=== PATIENT | male | born 1965 | race Caucasian/White ===

== ENCOUNTER 2017-05-13 05:36 | Day surgery (SDC) | payer OTHER ==
[~2017-05-13] VITALS: Ht 175.3 cm; Wt 72.6 kg
[~2017-05-13 05:36] MED LIST: IBUPROFEN600 MG PO; NAPROXEN500 MG PO; NORCO 5-325 TA1 EACH PO
[2017-05-13] MEDS ORDERED: MOBIC15 MG PO (05:56)
[2017-05-13] MEDS ORDERED: ULTRAM50 MG PO (05:57)
--- NOTE | 2017-05-13 07:31 | NUR ---
05/13/17 0731 Queenie Hinojosa 0736-PATIENT ARRIVED TO PACU ON RA AWAKE DENIES PAIN OR NAUSEA. SB. BANDAID TO LEFT ANTERIOR HIP CDI. GUARDS AT BEDSIDE RA O2 SAT 98%
== END 2017-05-13 07:51 | disposition home or self-care (01) ==
LOC: OPS 05:36 → DS 05:36 → OPS 06:45 → DS 06:45 → OPS 07:51
PROVIDERS: Orthopaedic Surgery
PROC: 3E0U3BZ Introduction of Anesthetic Agent into Joints, Percutaneous Approach (ICD-10-PCS; principal; 2017-05-13 06:45)
DX: M16.12 Unilateral primary osteoarthritis, left hip (principal)
CPT/HCPCS: 73501; 99156; J0690; J1885; J2704; J3010; J3301; J7120

== ENCOUNTER 2018-02-11 11:10 | Inpatient (IN) | payer OTHER ==
[~2018-02-11] VITALS: Ht 175.3 cm; Wt 72.6 kg
[~2018-02-11 11:10] MED LIST changes: +MOBIC15 MG PO; +ULTRAM50 MG PO
[2018-02-22] MEDS ORDERED: INDOMETHACIN25 MG PO (06:02)
--- NOTE | 2018-02-22 07:03 | NUR ---
CHG ORAL RINSE AND NASAL SWAB COMPLETE.
--- NOTE | 2018-02-22 09:04 | NUR ---
02/22/18 0904 Desi Lockett 0825 PATIENT ARRIVES TO PACU SLEEPING, OPENS EYES WITH VERBAL STIMULI. RESP EVEN AND UNLABORED. MASK AT 10 LITERS, DECREASED TO 6 LITERS. SATS 100%.
--- NOTE | 2018-02-22 10:13 | NUR ---
LE 0930: SPINAL LEVEL ASSESSED AND IS NOTED TO BE @ T12. PATIENT IS ABLE TO MOVE HIS LEFT FOOT FROM SIDE TO SIDE MINIMALLY. COFFEE AND ICED WATER GIVEN. PATIENT DRINKING WATER AND TOLERATING THAT WELL. MORE ICED WATER GIVEN.
--- NOTE | 2018-02-22 10:24 | NUR ---
SPINAL REMAINS UNCHANGED. PATIENT IS ABLE TO MOVE FEET BILATERALLY BACK AND FORTH MINIMALLY.
--- NOTE | 2018-02-22 11:45 | NUR ---
PT ARRIVED FROM DAY SURGERY. REPORT TAKEN FROM SEYMOUR TORRES. PT ORIENTED TO ROOM. PT DEMONSTRATES USE OF IS. PT TOLERTING ICE CREAM AND CRACKERS. ORDER PLACED FOR SOUP AND SANDWICH LUNCH. PT REPORTS 2/10 TOLERABLE PAIN AND DENIES NAUSEA. ICE IN PLACED OVER LOBITO LEFT HIP BANDAGE. SCD'S IN PLACE. ASSESSMENT DONE. MEDICATION GIVEN ORDERED (SEE MAR). TORDOL ORDER PLACED FOR BOTH 1200 AND 1400, PHARMACY CALLED, 1200 ORDER DC'D TORDOL TO BE GIVEN AT 1400. VITALS TAKEN. PT WATCHING TV. NO REQUESTS OR COMPLAINTS AT THIS TIME. BED RAILS UP. KNEES LOCKED BED AT 30 DEGREES. CALL LIGTH WITHIN REACH. OFFICERS AT BEDSIDE.
--- NOTE | 2018-02-22 11:58 | NUR ---
1145: PT TRANSFERRED TO ROOM 121 AND IS TRANSFERRED TO BED FROM STRETCHER USING SLIDER BOARD. PATIENT TOLERATES THE TRANSFER WELL. VERBAL REPORT IS GIVEN TO SEYMOUR VERGARA, HER QUESTIONS ARE ANSWERED AND SHE IS ATTENTIVE TO THE PATIENT AT THE BEDSIDE.
--- NOTE | 2018-02-22 13:00 | NUR ---
PATIENT SITTING UP IN BED. GUARDS X2 IN ROOM. CALL LIGHT WITHIN REACH. NO OTHER NEEDS AT THIS TIME.
--- NOTE | 2018-02-22 13:27 | NUR ---
MED REC COMPLETE WITH [facility] REC[facility].
--- NOTE | 2018-02-22 13:30 | NUR ---
THIS RN TO BEDSIDE TO ASSIST PT IN ATTEMPTING TO URINATE. URINAL PROVIDED. PT UNABLE TO VOID. BLADDER SCANScar DIAZ 999ML. CALLED. ORDER FOR REILLY CATHETER INCERTION PLACED. REILLY CATHETER PLACED BY STUDENT RN WITH SUPERVISION FROM THIS RN PER POLICY. 1175 ML REMOVED FROM REILLY. PT STATES "THAT DIDN'T HURT AT ALL." PT WATCHING TV. OFFICERS AT BEDSIDE. CALL LIGHT WITHIN REACH.
--- NOTE | 2018-02-22 15:08 | NUR ---
MEDICATION DUE. THIS RN TO BEDSIDE. PT WATCHING TV. NO REQUESTS OR COMPLAINTS. MEDICATION GIVEN ORDERED. OFFICERS AT BEDSIDE. CALL LIGHT WITHIN REACH.
--- NOTE | 2018-02-22 15:17 | NUR ---
PATIENT SITTING UP IN BED. GUARDS X2 IN ROOM. PATIENT STATES PAIN LEVEL IS A 5 OUT OF 10. RN IN ROOM. FRESH ICE. FRESH ICE PACK. CALL LIGHT WITHIN REACH. NO OTHER NEEDS AT THIS TIME.
--- NOTE | 2018-02-22 16:57 | NUR ---
PT CALL LIGHT ON. PT REQUESTS PAIN MEDICATION FOR 05/10 PAIN. SEE MAR FOR MEDICATION GIVEN. ASSESSMENT DONE. PT WATCHING TV. PT DENIES NAUSEA. ABDUCTOR PILLOW IN PLACED. DRESSING CDI. REILLY DRAINING CLEAR YELLOW URINE TO GRAVITY. SCD'S RUNNING. PT STATES HE HAS NO ADDITIONAL REQUESTS OR COMPALINTS. BED RAILS UP. CALL LIGHT WITHIN REACH.
--- NOTE | 2018-02-22 17:03 | NUR ---
PATIENT SITTING UP IN BED WATCHING TV. GUARDS X2 IN ROOM. FRESH ICE WATER. CALL LIGHT WITHIN REACH. NO OTHER NEEDS AT THIS TIME.
--- NOTE | 2018-02-22 18:15 | NUR ---
MEDICATION DUE. THIS RN TO BEDSIDE. PT REPORTS IMPROVED PAIN NOW AT 02/08. MEDICATION GIVEN ORDERED. PT WATCHING TV AND WORKING WITH IS. WATER REFILLWED. PT STATES HAS NO ADDITIONAL REQUESTS OR COMPLAINTS AT THIS TIME. BED RAILS UP. CALL LIGHT WITHIN REACH. ABDUCTOR PILLOW AND ICE IN PLACE. SCDS RUNNING.
--- NOTE | 2018-02-22 18:34 | NUR ---
PT ARRIVED FROM DAY YR TODAY FOLLOWING LEFT TOTAL HIP REPLACEMENT. PRN PAIN MEDICATION. SPINAL RESOLVED. DENIES NASUEA. ADVANCED TO REGULAR DIET. ICE ON SITE. ABDUCTOR PILLOW IN PLACE. USING CALL LIGHT APPROPIRATLY. OFFICERS AT BEDSIDE.
--- NOTE | 2018-02-22 19:25 | NUR ---
RECEIVED REPORT FROM RN. PATIENT IS RESTING IN BED, BREATHING IS EVEN AND UNLABORED. DENIES NEEDS AT THIS TIME. CALL LIGHT WITHIN REACH, JOYA X4 IN PLACE, GUARDS AT BEDSIDE.
--- NOTE | 2018-02-22 20:43 | NUR ---
PATIENT RESTING IN BED, BREATHING IS EVEN AND UNLABORED. REPORTS 7/10 PAIN IN LEFT HIP, PRN PAIN MEDICATION GIVEN PER EMAR. DENIES FURTHER NEEDS. ASSESSMENT DONE. SHACKLES X4 IN PLACE, GUARDS AT BEDSIDE.
--- NOTE | 2018-02-22 22:41 | NUR ---
PATIENT RESTING COMFORTABLY IN BED, BREATHING IS EVEN AND UNLABORED. REPORTS 5/10 PAIN IN LEFT HIP, DENIES NEED FOR PAIN MEDICATION AT THIS TIME. DENIES NEEDS. CALL LIGHT WITHIN REACH, GUARDS AT BEDSIDE, SHACKLES X4 IN PLACE.
--- NOTE | 2018-02-23 00:45 | NUR ---
PATIENT RESTING COMFORTABLY IN BED, BREATHING IS EVEN AND UNLABORED. FLACC SCORE OF 0. SHACKLES IN PLACE X4, GUARDS AT BEDSIDE, CALL LIGHT WITHIN REACH.
--- NOTE | 2018-02-23 02:35 | NUR ---
PATIENT RESTING IN BED, REPORTS 7/10 PAIN IN LEFT HIP, PAIN MEDICATION GIVEN PER EMAR. PATIENT DENIES FURTHER NEEDS. CALL LIGHT WITHIN REACH, SHACKLES X4 IN PLACE, GUARDS AT BEDSIDE.
--- NOTE | 2018-02-23 03:30 | NUR ---
PT AWAKE, CALLED D/T IV PUMP SOUNDING. FLUSHED IV, SL AT THIS TIME. FRESH ICE WATER, ASSISTED WITH LINENS. ICE PACK TO LEFT HIP CONTINUES, 2 GUARDS PRESENT IN ROOM. PT HAD NO OTHER NEEDS.
--- NOTE | 2018-02-23 03:35 | NUR ---
VITAL SIGNS AND INTAKE AND OUTPUT DONE AND CHARTED. ICE WATER REFILLED AND ICE PACK.
--- NOTE | 2018-02-23 03:38 | NUR ---
PATIENT RESTING COMFORTABLY, REPORTS 5/10 PAIN AND STATES "IT IS GOING DOWN. I FEEL A LOT BETTER." DENIES NEEDS. CALL LIGHT WITHIN REACH, SHACKLES X4 IN PLACE, GUARDS AT BEDSIDE.
--- NOTE | 2018-02-23 06:33 | NUR ---
PATIENT RESTING COMFORTABLY IN BED, BREATHING IS EVEN AND UNLABORED. REPORTS 6/10 PAIN IN LEFT HIP, PRN DILAUDID GIVEN PER EMAR. DENIES FURTHER NEEDS. SHACKLES IN PLACE X4, GUARDS AT BEDSIDE, CALL LIGHT WITHIN REACH.
--- NOTE | 2018-02-23 08:08 | NUR ---
PT AWAKE IN BED EATING REG BREAKFAST, KADI WELL. PT DENIES NAUSEA. RATING LEFT HIP PAIN 5/10, MEDICATED WITH SCHEDULED TORADOL. IV IN RIGHT HAND FLUSHES WELL, DRESSING CDI. LEFT HIP DRESSING CDI, GOOD CMS, CAP REFILL LESS THAN 3, SENSATION AND MOVEMENT INTACT. ABDUCTOR PILLOW, ANTONY HOSE, SCD'S, AND HEEL PROTECTORS IN PLACE. PT ALERT AND ORIENTED TO ALL. 4 POINT SHACKLE RESTRAINTS IN PLACE, SKIN INTACT. 2 CORRECTIONAL OFFICERS AT BEDSIDE. CALL LIGHT WITHIN REACH.
--- NOTE | 2018-02-23 08:26 | NUR ---
PATIENT SITTING UP IN BED. GUARDS X2 IN ROOM. FRESH ICE WATER. FRESH ICE PACKS. PATIENT STATES PAIN LEVEL IS A 5 OUT OF 10. CALL LIGHT WITHIN REACH. NO OTHER NEEDS AT THIS TIME.
--- NOTE | 2018-02-23 09:46 | OR ---
[facility] [address], [place] [address] Signed DATE OF OPERATION: 02/22/2018 SURGEON: Rohan Box MD PREOPERATIVE DIAGNOSIS: End-stage osteoarthritis, left hip. POSTOPERATIVE DIAGNOSIS: End-stage osteoarthritis, left hip. PROCEDURE: Left total hip arthroplasty. ANESTHESIA: Spinal with sedation. SPECIMENS AND COMPLICATIONS: There were no specimens or complications. BLOOD LOSS: About 250. IMPLANTS: Kirklin sector cup 54 mm with two adjuvant screws, 36 neutral liner, a size 6 Fountain stem standard offset, and a -1.5 36 mm head. WHAT WAS DONE: The patient was taken to the operating room and placed on the operating table in the supine position. After anesthesia was induced, the patient was sedated. He was placed in the right lateral decubitus position and prepped and draped in a routine sterile fashion. A slight curvilinear incision was made centered over the tip of the greater trochanter, and skin and subcutaneous tissue were divided. Hemostasis was achieved with electrocautery and the deep fascia was incised in line with the skin incision. A self-retaining retractor was placed. The anterior one-third of the gluteus was elevated off of the greater trochanter and reflected medially. The anterior and superior capsulectomy was performed and the hip was dislocated. Femoral neck osteotomy was accomplished using the guide and an oscillating saw. The head and neck fragment were then removed. The acetabulum was then exposed by excising the rest of the labrum and the contents of the pulvinar were excised. Hemostasis was achieved with electrocautery again. We then did sequential reaming on the acetabulum up to a 53 mm. Because of the Electronically Signed By: ROHAN BOX MD 02/23/18 0946 PATIENT NAME: YENNIFER MARTINEZ OPERATIVE REPORT DATE OF : 61 REPORT #: [id number] PHYSICIAN: ROHAN BOX MD PCP: NO PRIMARY CARE PHYSICIAN REPORT IS CONFIDENTIAL AND NOT TO BE RELEASED WITHOUT AUTHORIZATION [facility] [address], [place] [address] Signed incredibly dense bone, we did touch the edge with the 54 mm reamer. We then put in a 53 mm trial. We were happy with the alignment and position and therefore impacted the 54 mm cup. The fixation was augmented with two screws. The neutral liner was then impacted. The femur was then rotated up into the wound and prepared with a standard box chisel, reamers, and broaches. We were quite happy with the fit and fill of a size 6 stem. We then relocated the hip on a -1.5 36 head and we were happy with the alignment, position, stability, and leg length. We then re-dislocated the hip, removed the trials, impacted the real stem, and relocated it with the -1.5 cobalt chrome head. Again, we had good alignment, good position. There was no neck impingement and he seemed to have a stable construct. The wound was copiously irrigated and closed in standard fashion. Sterile dressings were applied and the patient was awakened and taken to the recovery room where he arrived in stable condition. Counts were correct and antibiotic protocols were followed. Rohan Box MD WFB/MODL /[id number] Copies: ~ Electronically Signed By: ROHAN BOX MD 02/23/18 0946 PATIENT NAME: YENNIFER MARTINEZ OPERATIVE REPORT DATE OF : 61 REPORT #: [id number] PHYSICIAN: ROHAN BOX MD PCP: NO PRIMARY CARE PHYSICIAN REPORT IS CONFIDENTIAL AND NOT TO BE RELEASED WITHOUT AUTHORIZATION
--- NOTE | 2018-02-23 09:57 | NUR ---
PATIENT SITTING UP IN BED WATCHING TV. GUARDS X2 IN ROOM. PATIENT STATES PAIN LEVEL IS A 7 OUT OF 10. RN NOTIFIED. PATIENT VOIDED 600ML WELL. RN NOTIFIED. FRESH WATER. CALL LIGHT WITHIN REACH. NO OTHER NEEDS AT THIS TIME.
--- NOTE | 2018-02-23 10:30 | NUR ---
PT SITTING UP IN BED WATCHING TV. MEDICATED WITH PO DILAUDID BY CHARGE NURSE. ATE ALL OF BREAKFAST, KADI WELL. DENIES NAUSEA AT THIS TIME. DRESSING REMAINS CDI. TEDS, SCD'S ABDUCTOR PILLOW, HEEL PROTECTORS IN PLACE. 2 CORRECTIONAL OFFICERS AT BEDSIDE. CALL LIGHT WITHIN REACH.
--- NOTE | 2018-02-23 12:20 | NUR ---
PT SITTING IN BED WATCHING TV. MEDICATED WITH SCHEDULED TYLENOL. ATE ALL OF LUNCH, KADI WELL. DENIES NEEDS OR CONCERNS AT THIS TIME. [address], 2 CORRECTIONAL OFFICERS AT BEDSIDE.
--- NOTE | 2018-02-23 12:32 | NUR ---
PATIENT SITTING UP IN BED. GUARDS X2 IN ROOM. FRESH ICE PACKS. RN GOT PATIENT FRESH COFFEE. CALL LIGHT WITHIN REACH. NO OTHER NEEDS AT THIS TIME.
--- NOTE | 2018-02-23 12:52 | NUR ---
PT BACK TO BED FROM P.T., KADI WELL. MEDICATED WITH 2 TABS OXY FOR 7/10 LEFT HIP PAIN. CALL LIGHT WITHIN REACH. CORRECTIONAL OFFICERS AT BEDSIDE.
--- NOTE | 2018-02-23 13:19 | NUR ---
PATIENT SITTING UP IN BED WATCHING TV. GUARDS X2 IN ROOM. FRESH ICE WATER. CALL LIGHT WITHIN REACH. NO OTHER NEEDS AT THIS TIME.
[2018-02-23] MEDS ORDERED: NORCO 10-325 T1 EACH PO (13:23)
[2018-02-23] MEDS ORDERED: ULTRAM50 MG PO (13:24)
[2018-02-23] MEDS ORDERED: XARELTO10 MG PO (13:25)
--- NOTE | 2018-02-23 14:30 | NUR ---
PT DRESSED IN [facility] ATTIRE WITH ASSISTANCE FROM CORRECTIONAL OFFICERS. IV DC'D, CATH INTACT. DC INSTRUCTIONS GIVEN.
--- NOTE | 2018-02-24 18:35 | NUR ---
FAXED CHART NOTES TO [facility] INCLUDING FACESHEET, H AND P, OP NOTE, PROG NOTES, PT EVAL AND NOTES.
== END 2018-02-23 14:45 | disposition home or self-care (01) | DRG 470 ==
LOC: MS 02-22 05:42 → DSVR 02-22 05:42 → MS 02-22 06:45
PROVIDERS: ADMIT Orthopaedic Surgery
PROC: 0SRB01Z Replacement of Left Hip Joint with Metal Synthetic Substitute, Open Approach (ICD-10-PCS; principal; 2018-02-22 06:45)
DX: M16.12 Unilateral primary osteoarthritis, left hip (principal); F11.11 Opioid abuse, in remission; B19.20 Unspecified viral hepatitis C without hepatic coma; Z87.891 Personal history of nicotine dependence
CPT/HCPCS: 01214; 36415; 72170; 73501; 80048; 85025; 94762; 97116; 97162; C1776; G8978; G8979; G8980; J0690; J1100; J1170; J1885; J2250; J2274; J2405; J2704; J2765; J3010; J7120

== ENCOUNTER 2021-07-16 15:18 | Emergency (ER) | payer SELFPAY ==
[~2021-07-16] VITALS: Ht 175.3 cm; Wt 68.0 kg
[~2021-07-16 15:18] MED LIST changes: +INDOMETHACIN25 MG PO; +NORCO 10-325 T1 EACH PO; +XARELTO10 MG PO
[2021-07-16] MEDS ORDERED: PREDNISONE20 MG PO (17:19)
== END 2021-07-16 17:33 | disposition home or self-care (01) ==
LOC: ED 15:18
DX: G56.32 Lesion of radial nerve, left upper limb (principal); Z87.891 Personal history of nicotine dependence; Z79.899 Other long term (current) drug therapy; Z79.01 Long term (current) use of anticoagulants
CPT/HCPCS: 99284; A9270; J7512

== ENCOUNTER 2021-09-11 11:34 | Emergency (ER) | payer SELFPAY ==
[~2021-09-11] VITALS: Ht 175.3 cm; Wt 63.2 kg
[~2021-09-11 11:34] MED LIST changes: +PREDNISONE20 MG PO
[2021-09-11] MEDS ORDERED: BACTRIM DS TAB1 EACH PO (13:31)
== END 2021-09-11 13:45 | disposition home or self-care (01) ==
LOC: ED 11:34
DX: L02.415 Cutaneous abscess of right lower limb (principal); Z87.891 Personal history of nicotine dependence
CPT/HCPCS: 10060; 99282-25

== ENCOUNTER 2021-12-09 12:14 | Emergency (ER) | payer SELFPAY ==
[~2021-12-09] VITALS: Ht 175.3 cm; Wt 63.0 kg
[~2021-12-09 12:14] MED LIST changes: +BACTRIM DS TAB1 EACH PO
== END 2021-12-09 13:10 | disposition home or self-care (01) ==
LOC: ED 12:14
DX: U07.1 COVID-19 (principal); J06.9 Acute upper respiratory infection, unspecified; Z87.891 Personal history of nicotine dependence; Z79.899 Other long term (current) drug therapy
CPT/HCPCS: 99283

== ENCOUNTER 2022-05-11 22:25 | Emergency (ER) | payer OTHER ==
[~2022-05-11] VITALS: Ht 175.3 cm; Wt 63.0 kg
== END 2022-05-12 00:50 | disposition home or self-care (01) ==
LOC: ED 22:25
DX: S16.1XXA Strain of muscle, fascia and tendon at neck level, initial encounter (principal); W16.112A Fall into natural body of water striking water surface causing other injury, initial encounter; Z87.891 Personal history of nicotine dependence
CPT/HCPCS: 72125; 99284-25; A9270